=== PATIENT | female | born 1985 | race Caucasian/White ===

== ENCOUNTER → 2019-10-08 | Outpatient (CLI) | payer BC ==
--- NOTE | 2019-10-08 20:20 | US ---
EXAM DESCRIPTION: Abdomen,Complete: Ultrasound. CLINICAL HISTORY: 34 years FemaleUNSPECIFIED ABDOMINAL PAIN COMPARISON: None Available. TECHNIQUE: Transabdominal scanning: grayscale and Doppler modes. FINDINGS: Gallbladder: Normal size with prominent fold. No intraluminal stones or sludge. Wall thickness 2.9 mm. No fluid around the wall. Nontender with transducer pressure Common bile duct: 2.9 mm normal caliber. Liver: Long axis of the right lobe 13.1 cm. Normal echogenicity. Physiologic vascularity and normal caliber ducts. Portal vein is 1.1 cm caliber. Smooth capsule with no ascites. Pancreas: Normal echogenicity and size. Duct not seen.. Abdominal aorta: Normal caliber from the proximal segment to the distal bifurcation. IVC: visualized; normal caliber. Spleen normal echogenicity; long axis measurement is 7.9 cm. Right kidney: 9.9 cm long axis. Normal cortical thickness and echogenicity. No stones or hydronephrosis.. Left kidney: 10.4 cm long axis. Normal cortical thickness and echogenicity. No stones or hydronephrosis.. IMPRESSION: Ultrasound of the abdomen is negative. No organomegaly. No free fluid. No findings that are concordant with the clinical history. Electronically signed by: Carlos Lay MD 10/08/2019 8:18 PM CDT
== END ==
LOC: US 08:52
PROVIDERS: ATTEND Nurse Practitioner Family
DX: R10.9 Unspecified abdominal pain (principal)